=== PATIENT | male | born 1940 | race Caucasian/White ===

== ENCOUNTER → 2018-01-07 | Outpatient (CLI) | payer OTHER ==
[~2018-01-07] VITALS: Ht 177.8 cm; Wt 88.5 kg
[~2018-01-07] MED LIST: ADULT ASPIRIN81 MG PO; AMOXICILLIN500 MG PO; DIVALPROEX SOD500 M1 PO; DOK PLUS TABLE1 EACH PO; GLUCOSAMINE &1 EAC1 PO; HYDROCODON-ACE1 EA11 PO; LISINOPRIL5 MG PO; METFORMIN HCL1000 MG PO; MSM1000 M1 PO; MULTIVITAMIN1 EAC2 PO; ULTRAM50 MG PO; VICODIN 5-3001 EACH PO; ZESTRIL2.5 MG PO; ZOFRAN4 MG PO
== END | disposition home or self-care (01) ==
LOC: AMB 07:39
PROVIDERS: Internal Medicine
PROC: 0DBP8ZX Excision of Rectum, Via Natural or Artificial Opening Endoscopic, Diagnostic (ICD-10-PCS; principal; 2018-01-07)
DX: Z12.11 Encounter for screening for malignant neoplasm of colon (principal); K62.1 Rectal polyp; K57.30 Diverticulosis of large intestine without perforation or abscess without bleeding; K62.89 Other specified diseases of anus and rectum; D64.9 Anemia, unspecified; Z79.82 Long term (current) use of aspirin; Z79.84 Long term (current) use of oral hypoglycemic drugs
CPT/HCPCS: 82948; 88305